=== PATIENT | female | born 1980 | race Caucasian/White ===

== ENCOUNTER 2018-01-25 13:28 | Emergency (ER) | payer MEDICAID, SELFPAY ==
[2018-01-25 13:29] VITALS: BP 124/75; PULSE 81; RESP 16; TEMP 37.1; O2SAT 97; BMI 26.2
--- NOTE | 2018-01-25 14:29 | ED.VISSUMM ---
- ER Visit Summary Date of Service: 01/25/18 Chief Complaint: Headache and bumps on the back of my head History of Present Illness: The patient is a 37 F who complains of a headache. She states it began about 3:00 this morning. It did transiently seemed to improve but then worsened through the next several hours again. Currently she complains of a frontal headache that is aching and rated as an 8 out of 10. She denies any associated symptoms such as fevers nausea vomiting visual changes. No history of fall or injury. She states that she is really not concerned about her migraine and that she would not have come in for that alone. Mainly concerned with the abnormal bumps on the back of her head. She denies any recent illness fevers vomiting diarrhea review of systems negative except as noted above. Physical Examination: Afebrile vitals are normal Moist mucous membranes Patient does have tender left-sided posterior cervical lymphadenopathy I do not appreciate any scalp wounds folliculitis or abscess. Neck is supple with no meningismus Heart regular rate and rhythm Lungs are clear Alert and oriented ?3 with no focal or lateralizing neurological deficits no ataxia normal cerebellar testing Test Results: Not indicated Emergency Department Course and Treatment: Patient is not really concerned for her headache and is not requesting any treatment for that. She is medically healthy and has a normal neurological exam. I do not believe any imaging is necessary at this time. She is mainly concerned with her lymphadenopathy. She has a couple of tender posterior left cervical lymph nodes which are mobile. Patient was advised on supportive care. She was advised to follow-up with her primary care physician. She understands to return for new or worsening symptoms. Treatment Plan: [] Disposition: Discharge Impression: Headache Lymphadenopathy This note was generated with [employer] dictation software. It may contain incorrect words, spelling, and punctuation that were not noted in review of the chart prior to signing ED Disposition - Plan for ED Patient: Chief Complaint: Headache Referrals: Arianna Bacon NP-C [Primary Care Provider] -
--- NOTE | 2018-01-25 14:34 | DCINST.ED_ITS ---
ED Disposition - Plan for ED Patient: Chief Complaint: Headache Instructions: ED Headache Migraine, ED Cervical Adenitis No Abx Tx Referrals: Arianna Bacon, [employer]-C [Primary Care Provider] -
[2018-01-25 14:55] VITALS: BP 106/65; PULSE 64; RESP 17
== END 2018-01-25 14:55 | disposition home or self-care (01) ==
LOC: ED 14:28
PROVIDERS: Emergency Provider Emergency Medicine; Family Provider Nurse Practitioner Family; PCP Nurse Practitioner Family
DX: R51 Headache (principal); R59.0 Localized enlarged lymph nodes; J45.909 Unspecified asthma, uncomplicated; Z79.899 Other long term (current) drug therapy; Z72.0 Tobacco use
CPT/HCPCS: 99282

== ENCOUNTER → 2018-09-29 14:15 | Outpatient (CLI) | payer MEDICAID, SELFPAY ==
--- NOTE | 2018-09-29 14:38 | RAD_ITS ---
STUDY: X-RAY CHEST REASON FOR EXAM: Female, 38 years old. Cough TECHNIQUE: Frontal and lateral views of the chest COMPARISON: 07/21/2017 FINDINGS: The lungs are clear. There are no pleural effusions. There is no pneumothorax. The heart is normal in size. The visualized osseous structures are within normal limits. RAD/Chest PA and Lateral IMPRESSION: Clear lungs. Electronically Signed: Leo Archer, at 22:20 EST Tel , Service support ,
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
== END ==
PROVIDERS: Referring Provider Nurse Practitioner Family; Visit Provider Nurse Practitioner Family
DX: R05 Cough (principal)
CPT/HCPCS: 71046; 87070; 87205

== ENCOUNTER → 2018-11-08 09:20 | Outpatient (CLI) | payer MEDICAID, SELFPAY ==
[2018-11-08 08:34] VITALS: BMI 25.2
[2018-11-08 10:03] LABS: Absolute Lymphocyte Count 2.44 X10^3/ul (0.83-4.51); Absolute Neutrophil Count 4.4 X10^3/uL (2.0-7.7); Basophil# 0.03 X10^3/uL; Basophil% 0.4 % (0-1); Eosinophil# 0.27 X10^3/uL; Eosinophils% 3.6 % (0-5); Hematocrit 41.1 % (37-47); Hemoglobin 13.4 g/dl (12.0-15.0); Lymphocyte # 2.44 X10^3/ul (4.0); Lymphocyte % 32.9 % (19-41); Mean Corp Hgb Conc 32.6 g/gl (32-36); Mean Corpuscular Volume 101.2 fL (81-99); Mean Platelet Vol. 10.9 fl (6.2-12.0); Monocyte# 0.29 X10^3/uL; Monocyte% 3.9 % (0-10); Neutrophil # 4.38 X10^3/uL (2.7-7.7); Neutrophil % 59.1 % (47-70); Platelet Count 235 K/mm3 (150-450); RBC Distribution Width SD 47.8 fl (35.1-43.9); Red Blood Count 4.06 M/mm3 (4.2-5.4); White Blood Count 7.4 K/mm3 (4.4-11.0)
[2018-11-08 10:06] LABS: POSITIVE COUNT NO; POSITIVE DIFFERENTIAL NO; POSITIVE MORPHOLOGY NO
[2018-11-11 09:09] LABS: Ash, White 0.75 kU/L (Class II); Aspergillus fumigatus 4.25 kU/L (Class IV); Bermuda Grass 0.47 kU/L (Class I); Birch 0.26 kU/L (Class 0/I); Black Walnut 0.87 kU/L (Class II); Cat Hair / Dander,Stand 1.03 kU/L (Class II); Cedar, Mountain 0.66 kU/L (Class II); Cladosporium herbarum 1.82 kU/L (Class III); Cockroach, American 0.64 kU/L (Class II); Cottonwood 0.47 kU/L (Class I); D farinae Mite 0.72 kU/L (Class II); D pteronyssinus 1.02 kU/L (Class II); Dog Epithelia 4.18 kU/L (Class IV); Elm, American White 0.92 kU/L (Class II); Immunoglobulin E 2108 IU/mL (0-100); Maple/Box Elder 0.75 kU/L (Class II); Mulberry, White 0.39 kU/L (Class I); Oak, White 0.54 kU/L (Class I); Pecan 0.33 kU/L (Class I); Pigweed, Rough 0.63 kU/L (Class II); Ragweed, Short/Common 0.46 kU/L (Class I); Russian Thistle 0.48 kU/L (Class I); Sycamore, American 0.74 kU/L (Class II); Timothy Grass 0.75 kU/L (Class II)
[2018-11-11 20:06] LABS: Aspirgillus flavus Negative (Neg:<1:1); Aspirgillus fumigatus Negative (Neg:<1:1); Aspirgillus niger Negative (Neg:<1:1)
[2018-11-13 08:53] LABS: Immunoglobulin E 2358 IU/mL (0-100)
[2018-11-13 09:04] LABS: Mouse Urine 0.39 kU/L (Class I)
--- OUTSIDE RECORDS SUMMARY | 2019-01-10 05:54 | XMS RPT_ITS ---
:1980 Author Organization OHIP Care Team Providers Name Role Phone Arianna Pepper Referring Unavailable CLINIC, [facility]URPIN Primary Care Unavailable Arianna Pepper Attending Unavailable Rudy Garcia D.O. Attending Unavailable CLINIC, [facility] Referring Unavailable Arianna Pepper Primary Care Unavailable Horacio Linda Attending Unavailable Rudy Garcia D.O. Attending Unavailable CLINIC, [facility] BOYER FREE Primary Care Unavailable PROBLEMS PROBLEMS DATE TYPE CONDITION / CODE ATTENDING STATUS SOURCE 11/08/2018 Unknown J45.909 - Rudy Garcia, Active [place] Unspecified asthma, D.O. [facility] J45.909(ICD-10) Repository 09/29/2018 Unknown R05 - Cough / Jordi ECHEVARRIA, Active Raymond R05(ICD-10) [facility] Hospital Repository PROCEDURES PROCEDURES No Procedure Records FoundRESULTS RESULTS CBC W/DIFF, AUTOMATED Collected: 11/08/2018 Status: F Source: [place] 9:26 AM [facility] HOSPITAL REPOSITORY TYPE CODE TESTS RESULT OUT [...] Lymph 2.44 Performed By: #### L100.0100 #### [facility] [address] [place], [place], [address] IMMUNOGLOBULIN E Collected: 11/08/2018 Status: F Source: [place] 9:26 AM [facility] REPOSITORY TYPE CODE TESTS RESULT OUT OF REFERENCE UNITS RANGE LAB L3200.1600 0-100 IU/mL High IMMUNO E 2358 Result Comment: Performed at: - [facility] [id number] Appraisal Analyst: Blanquita Negrete MD, Phone: [phone] Performed By: #### L3200.1600, L3500.3600 #### [facility] (refer to report for specific site) refer to report for address and phone number ASPERGILLUS ANTIBODIES Collected: 11/08/2018 Status: F Source: [place] 9:26 AM [facility] REPOSITORY TYPE CODE TESTS RESULT OUT OF RANGE REFERENCE UNITS LAB L3500.3700 Neg:<1:1 Asp. Normal fumigatus Negative LAB L3500.3800 Neg:<1:1 Asp. Normal flavus Negative LAB L3500.3900 Neg:<1:1 Asp. Normal niger Negative Performed By: #### L3200.1600, L3500.3600 #### [facility] (refer to report for specific site) refer to report for address and phone number ALLERGEN RESP. AREA 5 Collected: 11/08/2018 Status: F Source: [place] 9:26 AM [facility] REPOSITORY Order Comment: Reason for Exam: Asthma Reason for exam? Asthma TYPE CODE TESTS RESULT OUT OF RANGE REFERENCE UNITS LAB L5500.8000 0-100 IU/mL High TOTAL igE 2108 LAB L5500.9900 . Normal RAST COMMENT Comment Result Comment: Levels of Specific IgE Class Description of Class ----- < 0.10 0 Negative 0.10 - 0.31 0/I Equivocal/Low 0.32 - 0.55 I Low 0.56 - 1.40 II Moderate 1.41 - 3.90 III High 3.91 - 19.00 IV Very High 19.01 - 100.00 V Very High >100.00 Very High LAB L5510.0040 Class II kU/L CAT HAIR/DANDER High 1.03 LAB L5510.0070 Class IV kU/L DOG EPITHELIA High 4.18 LAB L5520.0020 Class II kU/L D FARINAE MITE High 0.72 LAB L5520.0030 Class II kU/L D PTERONYSSINUS High 1.02 LAB L5540.0020 Class I kU/L BERMUDA GRASS High 0.47 LAB L5540.0190 Class II kU/L GIOVANNY GRASS High 0.75 LAB L5550.0020 Class IV kU/L ALTERNARIA TEN High 14.70 LAB L5550.0040 Class IV kU/L ASPERGILLUS FUM High 4.25 LAB L5550.0140 Class III kU/L CLADOSPOR HERB High 1.82 LAB L5550.0340 Class IV kU/L PEN Notatum High 4.00 LAB L5555.0380 Class II kU/L COCKROACH,AMER High 0.64 LAB L5555.0410 Class I kU/L Mouse Urine High 0.39 Result Comment: Performed at: [facility] [id number] Appraisal Analyst: Blanquita Negrete MD, Phone: [phone] LAB L5560.0050 Class II kU/L OLYA, WHITE High 0.75 LAB L5560.0100 Class 0/I kU/L BIRCH High 0.26 LAB L5560.0110 Class II kU/L CEDAR, High MOUNTAIN 0.66 LAB L5560.0140 Class I kU/L COTTONWOOD High 0.47 LAB L5560.0170 Class II kU/L ELM,AMER High WHITE 0.92 LAB L5560.0310 Class II kU/L MAPLE/BOX High ELDER 0.75 LAB L5560.0371 Class I kU/L MULBERRY, High WHITE 0.39 LAB L5560.0400 Class I kU/L OAK, WHITE High 0.54 LAB L5560.0440 Class I kU/L PECAN High 0.33 LAB L5560.0550 Class II kU/L SYCAMORE, High AMER 0.74 LAB L5560.0570 Class II kU/L BLACK High WALNUT 0.87 LAB L5580.0210 Class II kU/L PIGWEED, High ROUGH 0.63 LAB L5580.0260 Class I kU/L RAGWEED High SH/COM 0.46 LAB L5580.0320 Class I kU/L SHEEP High SORREL 0.40 LAB L5580.0360 Class I kU/L SURINAMESE High THISTLE 0.48 Performed By: #### L5500.0700 #### [facility] (refer to report for specific site) refer to report for address and phone number PULMONARY VISIT REPORT Observed: 11/08/2018 Status: F Source: [place] 9:24 AM [facility] REPOSITORY [facility] [place] [address] [place] [address] OFFICE VISIT Date of Service: 11/08/18 MR#: [id number] Acct: [id number] Name: SEAN BORREGO Rep #: [id number] : 1980 Provider: Rudy Garcia D.O. Age/Sex: 38/F [place] [facility] Status: Signed Assessment AND Plan 1. Asthma [...] patient is currently being followed by the [facility]. 10 pages of outside medical records were [...] denies ever having been evaluated by a flask handler. She does report that when she becomes [...] DO Cosigner Signature: Date (if applicable) CC: [facility] CHEST PA AND LATERAL Observed: 09/29/2018 Status: F Source: [place] 2:38 PM [facility] REPOSITORY [facility] Imaging Services [address] [place] [address] Chest PA and Lateral MR#: [id number] Acct: [id number] Name: SEAN BORREGO Rep #: [id number] : 1980 F 38 From: Leo Archer MD PCP: [facility] Status: REG CLI Study: Chest PA and Lateral Date of Exam: 09/29/18 Exam# [id number] Ordering Dr: Arianna Bacon CHANGE LEAD-C STUDY: X-RAY CHEST REASON FOR EXAM: Female, [...] support , CC: Arianna ECHEVARRIA; ZAIN BOYER [facility] Product/Device Technologist: Signed Observed: 09/29/2018 Status: F Source: [place] CULTURE, SPUTUM 2:31 PM [facility] REPOSITORY Gram Stain Gram Stain 2+ White Blood Cells Rare Gram positive cocci Rare Epithelial cells Rare Yeast Like Organisms Resp. Culture Mixed normal respiratory sandy. No Haemophilus, Streptococcus pneumoniae, beta-hemolytic Streptococcus or Staphylococcus aureus isolated. Performed By: #### M100.0800 #### [facility] [address] [place], [address] DISCHARGE INSTRUCTION Observed: 01/25/2018 Status: F Source: [place] 2:34 PM [facility] REPOSITORY [facility] Medical Records Department [address] [place] [address] Discharge Instruction 01/25/18 1433 MR#: [id number] Acct: [id number] Name: SEAN BORREGO Rep #: [id number] : 1980 37 From: Horacio Linda MD PCP: Arianna Pepper Status: REG ER ED Disposition - Plan for ED Patient: Chief Complaint: Headache Instructions: ED Headache Migraine, ED Cervical Adenitis No Abx Tx Referrals: Arianna Bacon, CHANGE LEAD-C [Primary Care Provider] - What to do if you have Problems For any increased pain, shortness of breath, bleeding, nausea or vomiting, chest pain, or any unexpected problems, contact your Primary Care Provider. Call [facility] ([phone]) or report to the closest Emergency Room. Call 911 if necessary. 01/25/18 1434 <Electronically signed by Horacio Linda MD> Date Horacio Linda MD Cosigner Signature (If Indicated): Date CC: Arianna ECHEVARRIA EMERGENCY DEPARTMENT Observed: 01/25/2018 Status: F Source: [place] SUMMARY 2:33 PM [facility] REPOSITORY [facility] Medical Records Department [address] [place] [address] Emergency Department Summary 01/25/18 1429 MR#: [id number] Acct: [id number] Name: SEAN BORREGO Rep #: [id number] : 1980 37 From: Horacio Linda MD [...] Headache Lymphadenopathy This note was generated with [employer] dictation software. It may contain incorrect words, spelling, and punctuation that were not noted in review of the chart prior to signing ED Disposition - Plan for ED Patient: Chief Complaint: Headache Referrals: Arianna Bacon, CHANGE LEAD-C [Primary Care Provider] - What to do if you have Problems For any increased pain, shortness of breath, bleeding, nausea or vomiting, chest pain, or any unexpected problems, contact your Primary Care Provider. Call [facility] ([phone]) or report to the closest Emergency Room. Call 911 if necessary. 01/25/18 1433 <Electronically signed by Horacio Linda MD> Date Horacio Linda MD Cosigner Signature (If Indicated): Date CC: Arianna ECHEVARRIA ALLERGIES ALLERGIES DATE TYPE / CODE NAME / CODE REACTION SEVERITY SOURCE 11/03/2018 Drug Penicillins Anaphylaxis [facility]160 /[id number] itching Hospital 29825(SNOMED (RXNORM) Repository CT) 01/25/2018 Drug caffeine/F0 Rash Unknown [facility] All[facility]/4160 [id number](RX Hospital 04018(SNOMED NORM) Repository CT) 01/25/2018 Drug aspirin/F00 Rash Unknown [place] [facility] Allergy/4160 [id number]([facility] Hospital 93756(SNOMED ORM) Repository CT) 01/25/2018 Drug acetaminoph Rash Unknown [facility] Allergy/4160 en/[id number] Hospital [facility](SNOMED 05(RXNORM) Repository CT) ENCOUNTERS ENCOUNTERS ADMIT/DISCHARGE ACCOUNT ADMITTING ENCOUNTER LOCATION SOURCE NUMBER CLASS 11/08/2018 [id number] Ambulatory [place] 3 [facility] ing:PAVLAB Repository 11/08/2018/ [id number] Ambulatory BMSBuilding:B [place] 9 8 MS.PMW [facility] Repository 09/29/2018 [id number] Ambulatory [place] G[place] 7 [facility] ing:LAB Repository 01/25/2018/ [id number] Emergency Raymond Raymond 8 7 [facility] ing:ED Repository PAYERS PAYERS ENCOUNTER GUARANTOR PAYER SUBSCRIBER SOURCE 11/08/2018 SEAN Mahan Primary SEAN Beasley [id number] Insurance:CARESOURCEP SUSANAB: [facility] Number: [id number] [id number] Repository [address]Wmp: (815) Date:2018-11-08P O [phone] () [address]ATTN: [place] [address]GH: 11/08/2018 Secondary NOT GIVENUNK Raymond Insurance:SELF PAY [facility] Number: Effective Repository Date:2018-11-08 11/08/2018 SEAN Mahan Primary SEAN Beasley [id number] Insurance:CARESOURCEP INESYKB: [facility] Number: [id number] [place], [place] [id number] Repository [address]Hll: (815) Date:2018-10-23 O [phone] () [address]ATTN: [place] [address]BC: 11/08/2018 Secondary NOT GIVENUNK Raymond Insurance:SELF PAY [facility] Number: Effective Repository Date:2018-11-02 09/29/2018 SEAN Mahan Primary SEAN Beasley [id number] Insurance:CAREURCELMO MEZAB: [facility] Number: [id number] [id number] Repository 520[address]Avd: (115) Date:2018-09-29P O [phone] () [address]ATTN: [place] [address]QR: 09/29/2018 Secondary NOT GIVENUNK Gael Insurance:SELF PAY [facility] Number: Effective Repository Date:2018-09-29 01/25/2018 SEAN Mahan Primary SEAN K Gale [id number] Insurance:[facility] SUSANAB: [facility] Number: [id number] [id number] Repository [address]Hhz: (815) Date:2018-01-25P O [phone] () [address]ATTN: [place] [address]NI: 01/25/2018 Secondary NOT GIVENUNK Gale Insurance:SELF PAY [facility] Number: Effective Repository Date:2018-01-25
== END ==
PROVIDERS: Visit Provider Internal Medicine Critical Care Medicine
DX: J45.909 Unspecified asthma, uncomplicated (principal)
CPT/HCPCS: 36415; 82785; 85025; 86003; 86606

== ENCOUNTER → 2018-11-16 10:29 | Outpatient (CLI) | payer MEDICAID, SELFPAY ==
[2018-11-08 08:34] VITALS: BMI 25.2
--- NOTE | 2018-11-16 13:54 | PFT ---
INTRODUCTION: The patient is a 38-year-old female that presents for pulmonary function testing secondary to a diagnosis of asthma. Respiratory therapy reports good patient effort. Bronchodilators were used during testing. INTERPRETATION: Forced expiration spirometry demonstrates no evidence of a large airways obstructive ventilatory defect. There was no significant response to aerosolized bronchodilators. Spirograms are of good quality and plateau normally. Body plethysmography was performed and reveals a decreased TLC to 5.35 L, 85% of predicted, indicative of a mild restrictive ventilatory defect. The remainder of the lung volumes are symmetrically reduced. Diffusing capacity by single breath CO is within normal limits at 97% of predicted. IMPRESSION: These pulmonary function studies demonstrate the presence of an isolated mild restrictive ventilatory defect. There are no previous pulmonary function studies available for comparison.
== END ==
PROVIDERS: Referring Provider Internal Medicine Critical Care Medicine; Visit Provider Internal Medicine Critical Care Medicine
DX: J45.909 Unspecified asthma, uncomplicated (principal)
CPT/HCPCS: 94060; 94726; 94729

== ENCOUNTER 2019-03-29 20:28 | Emergency (ER) | payer MEDICAID, SELFPAY ==
[2019-02-01 08:13] VITALS: BMI 26.2
[2019-03-29 20:29] VITALS: BP 133/77; PULSE 72; RESP 16; TEMP 36.6; O2SAT 98; BMI 28.5
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
[2019-03-29] MEDS: predniSONE 20 MG Tablet 60 MG PO (21:10)
[2019-03-29] MEDS: Naproxen 500 MG Tablet PO (21:10)
[2019-03-29 21:12] VITALS: BP 133/77; PULSE 17; RESP 16; O2SAT 98
== END 2019-03-29 21:17 | disposition home or self-care (01) ==
LOC: ED 21:12
PROVIDERS: Emergency Provider Emergency Medicine
DX: S39.012A Strain of muscle, fascia and tendon of lower back, initial encounter (principal); M54.41 Lumbago with sciatica, right side; X58.XXXA Exposure to other specified factors, initial encounter; Y93.9 Activity, unspecified; Y92.9 Unspecified place or not applicable; J45.909 Unspecified asthma, uncomplicated; Z87.891 Personal history of nicotine dependence
CPT/HCPCS: 99284

== ENCOUNTER → 2019-05-03 10:33 | Outpatient (CLI) | payer MEDICAID, SELFPAY ==
[2019-05-03 09:50] VITALS: BMI 28.5
[2019-05-03 11:14] LABS: Absolute Lymphocyte Count 2.52 X10^3/uL (0.83-4.51); Absolute Neutrophil Count 3.8 X10^3/uL (2.0-7.7); Basophil# 0.03 X10^3/uL; Basophil% 0.4 % (0-1); Eosinophil# 0.16 X10^3/uL; Eosinophils% 2.3 % (0-5); Hematocrit 43.5 % (37-47); Hemoglobin 14.5 g/dL (12.0-15.0); Lymphocyte # 2.52 X10^3/ul (4.0); Lymphocyte % 36.1 % (19-41); Mean Corp Hgb Conc 33.3 g/dL (32-36); Mean Corpuscular Hgb 33.3 pg (27.0-32.0); Mean Corpuscular Volume 99.8 fL (81-99); Mean Platelet Vol. 10.3 fl (6.2-12.0); Monocyte# 0.41 X10^3/uL; Monocyte% 5.9 % (0-10); NRBC Flagged by Analyzer 0 % (0-5); Neutrophil # 3.84 X10^3/uL (2.7-7.7); Platelet Count 222 K/mm3 (150-450); RBC Distribution Width CV 12.6 % (11.6-14.6); RBC Distribution Width SD 46.6 fl (35.1-43.9); Red Blood Count 4.36 M/mm3 (4.2-5.4)
== END ==
PROVIDERS: Referring Provider Nurse Practitioner Acute Care; Visit Provider Nurse Practitioner Acute Care
DX: J45.909 Unspecified asthma, uncomplicated (principal)
CPT/HCPCS: 36415; 85025

== ENCOUNTER 2019-06-01 07:50 | Emergency (ER) | payer MEDICAID, SELFPAY ==
[2019-05-03 09:50] VITALS: BMI 28.5
[2019-06-01 07:51] VITALS: BP 151/79; PULSE 83; RESP 19; TEMP 37.2; O2SAT 99; BMI 25.8
--- NOTE | 2019-06-01 07:59 | RAD_ITS ---
STUDY: X-RAY - PELVIS REASON FOR EXAM: Female, 38 years old. Right-sided pain following a fall. TECHNIQUE: One view of the pelvis was obtained. COMPARISON: None. FINDINGS: There is a non-specific bowel gas pattern. Normal visualized soft tissue structures. Normal bilateral iliac wings, sacroiliac joints and visualized sacrum. Normal visualized bilateral superior and inferior pubic rami. Normal pubic symphysis. Normal ischial tuberosities. Normal visualized right femoral head. Normal right acetabulum. Normal right hip joint. Normal visualized left femoral head. Normal left acetabulum. Normal left hip joint. RAD/Pelvis 1 or 2 Views IMPRESSION: Normal x-ray examination of the pelvis. Electronically Signed: Riki Lawson, at 8:37 EDT , Service support ,
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
[2019-06-01] MEDS: Ketorolac 15 MG/ML Vial IV (08:09)
[2019-06-01 08:44] VITALS: RESP 18
== END 2019-06-01 08:45 | disposition home or self-care (01) ==
PROVIDERS: Emergency Provider Emergency Medicine
DX: S30.0XXA Contusion of lower back and pelvis, initial encounter (principal); W01.0XXA Fall on same level from slipping, tripping and stumbling without subsequent striking against object, initial encounter; Y93.9 Activity, unspecified; Y92.9 Unspecified place or not applicable; Y99.0 Civilian activity done for income or pay; J45.909 Unspecified asthma, uncomplicated; Z87.891 Personal history of nicotine dependence; Z79.899 Other long term (current) drug therapy
CPT/HCPCS: 72170; 96374; 99283; A4216

== ENCOUNTER → 2019-06-05 12:36 | Outpatient (CLI) | payer MEDICAID, SELFPAY ==
[2019-06-01 07:51] VITALS: BMI 25.8
[2019-06-05 12:54] VITALS: BP 124/60; PULSE 70; RESP 16; TEMP 36.6; O2SAT 98; BMI 26.5
[2019-06-05] MEDS: Benralizumab 30 MG/ML Syringe SQ (13:23)
--- NOTE | 2019-06-05 15:37 | NURSING ---
monitored patient for 90 minutes after injection. Tolerated well. BP 111/57. pulse 61. c/o of nausea but didnt eat all day except a fruit pie. Gave patient apple juice and snack..Feels better.
== END ==
PROVIDERS: Referring Provider Nurse Practitioner Acute Care; Visit Provider Nurse Practitioner Acute Care
DX: J45.50 Severe persistent asthma, uncomplicated (principal)
CPT/HCPCS: 96372; J0517

== ENCOUNTER → 2019-07-03 11:29 | Outpatient (CLI) | payer MEDICAID, SELFPAY ==
[2019-06-05 12:54] VITALS: BMI 26.5
[2019-07-03 11:41] VITALS: BP 125/70; PULSE 72; RESP 16; TEMP 36.8; O2SAT 98; BMI 25.8
[2019-07-03] MEDS: Benralizumab 30 MG/ML Syringe SQ (11:55)
== END ==
PROVIDERS: Referring Provider Nurse Practitioner Acute Care; Visit Provider Nurse Practitioner Acute Care
DX: J45.50 Severe persistent asthma, uncomplicated (principal)
CPT/HCPCS: 96372; J0517

== ENCOUNTER → 2019-07-30 11:55 | Outpatient (CLI) | payer MEDICAID, SELFPAY ==
[2019-07-03 11:41] VITALS: BMI 25.8
[2019-07-30 12:23] VITALS: BP 125/72; PULSE 71; RESP 16; TEMP 36.4; O2SAT 100
[2019-07-30] MEDS: Benralizumab 30 MG/ML Syringe SQ (12:36)
== END ==
PROVIDERS: Referring Provider Nurse Practitioner Acute Care; Visit Provider Nurse Practitioner Acute Care
DX: J45.50 Severe persistent asthma, uncomplicated (principal)
CPT/HCPCS: 96372; J0517

== ENCOUNTER → 2019-09-28 08:54 | Outpatient (CLI) | payer MEDICAID, SELFPAY ==
[2019-07-03 11:41] VITALS: BMI 25.8
[2019-08-02 07:10] VITALS: BMI 28.1
[2019-09-28 09:00] VITALS: BP 130/70; PULSE 78; RESP 18; TEMP 36.3; O2SAT 98
[2019-09-28] MEDS: Benralizumab 30 MG/ML Syringe SQ (09:02)
[2019-09-28 09:35] VITALS: BP 116/66; PULSE 90; RESP 18; TEMP 36.3; O2SAT 99
== END ==
PROVIDERS: Referring Provider Nurse Practitioner Acute Care; Visit Provider Nurse Practitioner Acute Care
DX: J45.50 Severe persistent asthma, uncomplicated (principal)
CPT/HCPCS: 96372; J0517

== ENCOUNTER → 2019-11-23 08:37 | Outpatient (CLI) | payer MEDICAID, SELFPAY ==
[2019-08-02 07:10] VITALS: BMI 28.1
[2019-10-25 07:41] VITALS: BMI 28.1
[2019-11-23 08:48] VITALS: BP 127/73; PULSE 79; RESP 16; TEMP 36.6; O2SAT 99; BMI 28.5
[2019-11-23] MEDS: Benralizumab 30 MG/ML Syringe SQ (08:53)
== END ==
PROVIDERS: Referring Provider Nurse Practitioner Acute Care; Visit Provider Nurse Practitioner Acute Care
DX: J45.50 Severe persistent asthma, uncomplicated (principal)
CPT/HCPCS: 96372; J0517

== ENCOUNTER → 2020-01-31 07:46 | Outpatient (CLI) | payer MEDICAID, SELFPAY ==
[2020-01-29 07:16] VITALS: BMI 28.5
[2020-01-31 07:58] VITALS: BP 106/61; PULSE 82; RESP 16; TEMP 36.4; O2SAT 100; BMI 28.5
[2020-01-31] MEDS: Benralizumab 30 MG/ML Syringe SQ (08:21)
== END ==
PROVIDERS: Referring Provider Nurse Practitioner Acute Care; Visit Provider Nurse Practitioner Acute Care
DX: J45.50 Severe persistent asthma, uncomplicated (principal)
CPT/HCPCS: 96372; J0517

== ENCOUNTER → 2020-03-27 07:35 | Outpatient (CLI) | payer MEDICAID, SELFPAY ==
[2020-01-29 07:16] VITALS: BMI 28.5
[2020-01-31 07:58] VITALS: BMI 28.5
[2020-03-27 07:49] VITALS: BP 117/60; PULSE 79; RESP 16; TEMP 37; O2SAT 98; BMI 25.7
[2020-03-27] MEDS: Benralizumab 30 MG/ML Syringe SQ (07:54)
[2020-03-27 08:22] VITALS: BP 111/61; PULSE 74; RESP 16; TEMP 36.9; O2SAT 99
== END ==
PROVIDERS: Referring Provider Nurse Practitioner Acute Care; Visit Provider Nurse Practitioner Acute Care
DX: J45.50 Severe persistent asthma, uncomplicated (principal)
CPT/HCPCS: 96372; J0517

== ENCOUNTER → 2020-04-30 14:27 | Outpatient (CLI) | payer MEDICAID, SELFPAY ==
[2020-04-09 09:19] VITALS: BMI 25.8
--- NOTE | 2020-04-30 14:31 | VDLE_ITS ---
Reason For Study: Pain in calves RIGHT LEFT GSV is normal. GSV is normal. CFV is compressible, spontaneous, phasic, CFV is compressible, spontaneous, phasic, competent and demonstrates normal competent, and demonstrates normal augmentation. augmentation. FV is compressible, spontaneous, phasic, FV is compressible, spontaneous, phasic, competent and demonstrates normal competent and demonstrates normal augmentation. augmentation. POP V is compressible, spontaneous, phasic, POP V is compressible, spontaneous, phasic, competent and demonstrates normal competent and demonstrates normal augmentation. augmentation. T/P Trunk is compressible. T/P Trunk is compressible. PTV is compressible. PTV is compressible. RT PerV is compressible. LT PerV is compressible. Procedure Nonvasculairzed structure noted in the Exam performed in department. popliteal fossa measuring approximently 1.58 A preliminary report was called and/or faxed x 3.99 x 5.43 cm. to Jordi. Interpretation Summary Deep veins of the lower extremities are bilaterally patent and compressible segmentally. There is no evidence of deep vein thrombosis on either side. Valvular competence appears intact within the proximal deep venous systems bilaterally. The great saphenous veins appear bilaterally patent and compressible segmentally. A non-vascular, hypoechoic structure is noted in the left popliteal space, measuring 1.58 cm x 3.99 cm x 5.43 cm. This may represent a popliteal cyst. Clinical correlation is advised. Ordering Physician: Arianna Bacon Referring Physician: Anu Gupta [facility] Performed By: Ruth Godoy RVT and Student
== END ==
PROVIDERS: Referring Provider Nurse Practitioner Family; Visit Provider Nurse Practitioner Family
DX: J45.50 Severe persistent asthma, uncomplicated (principal); M79.661 Pain in right lower leg; M79.662 Pain in left lower leg
CPT/HCPCS: 93970

== ENCOUNTER → 2020-05-09 08:10 | Outpatient (CLI) | payer MEDICAID, SELFPAY ==
[2020-05-09 08:06] VITALS: BMI 25.8
--- NOTE | 2020-05-09 08:11 | RAD_ITS ---
STUDY: X-RAY - LEFT KNEE REASON FOR EXAM: Female, 39 years old. CHRONIC PAIN, NO KNOWN INJURY, WORSE RECENTLY TECHNIQUE: Five view(s) of the knee. COMPARISON: None. FINDINGS: Normal visualized distal femur. Normal visualized proximal tibia and fibula. Normal proximal tibiofibular articulation. Normal medial femorotibial compartment. Normal lateral femorotibial compartment. Normal patellofemoral articulation. The soft tissue structures are unremarkable. RAD/Knee 4 or More Views IMPRESSION: Normal x-ray examination of the knee. Electronically Signed: Refugio Collado MD at 9:58 EDT , Service support ,
--- NOTE | 2020-05-09 08:11 | RAD_ITS ---
STUDY: X-RAY - RIGHT KNEE REASON FOR EXAM: Female, 39 years old. CHRONIC PAIN, NO KNOWN INJURY, WORSE RECENTLY TECHNIQUE: 4 view(s) of the knee. COMPARISON: None. FINDINGS: Normal visualized distal femur. Normal visualized proximal tibia and fibula. Normal proximal tibiofibular articulation. Normal medial femorotibial compartment. Normal lateral femorotibial compartment. Normal patellofemoral articulation. The soft tissue structures are unremarkable. RAD/Knee 4 or More Views IMPRESSION: Normal x-ray examination of the knee. Electronically Signed: Refugio Collado MD at 9:58 EDT , Service support ,
--- NOTE | 2020-05-09 08:11 | RAD_ITS ---
STUDY: X-RAY - LUMBAR SPINE REASON FOR EXAM: Female, 39 years old. CHRONIC PAIN, NO KNOWN INJURY, WORSE RECENTLY TECHNIQUE: 4 view(s) of the lumbar spine were obtained. COMPARISON: None FINDINGS: Normal lumbar lordosis. There is no substantial scoliosis. There is a normal alignment of the vertebrae. Normal vertebral bodies and endplates. Normal disc space heights, except for narrowing at L5/S1. There is no demonstrated fracture. The soft tissue structures are unremarkable. RAD/L/S Spine Min 4 Views IMPRESSION: Degenerative changes at L5/S1 with sclerotic endplate changes, spur formation and vacuum disc phenomenon. Electronically Signed: Refugio Collado MD at 9:59 EDT , Service support ,
== END ==
PROVIDERS: Referring Provider Orthopaedic Surgery; Visit Provider Orthopaedic Surgery
DX: M79.604 Pain in right leg (principal); M79.605 Pain in left leg; M25.561 Pain in right knee; M25.562 Pain in left knee; J45.50 Severe persistent asthma, uncomplicated
CPT/HCPCS: 72110; 73564

== ENCOUNTER → 2020-05-22 07:46 | Outpatient (CLI) | payer MEDICAID, SELFPAY ==
[2020-01-31 07:58] VITALS: BMI 28.5
[2020-05-09 08:06] VITALS: BMI 25.8
[2020-05-22] MEDS: Benralizumab 30 MG/ML Syringe SQ (07:59)
[2020-05-22 08:00] VITALS: BP 113/59; PULSE 72; RESP 16; TEMP 36.1; O2SAT 100; BMI 24.9
[2020-05-22 08:31] VITALS: BP 117/64; PULSE 70; RESP 16; TEMP 36.1; O2SAT 100
== END ==
PROVIDERS: Referring Provider Nurse Practitioner Acute Care; Visit Provider Nurse Practitioner Acute Care
DX: J45.50 Severe persistent asthma, uncomplicated (principal)
CPT/HCPCS: 96372; J0517

== ENCOUNTER 2020-06-12 09:00 | Outpatient (RCR) | payer MEDICAID, SELFPAY ==
[2020-05-09 08:06] VITALS: BMI 25.8
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
--- NOTE | 2020-06-12 09:47 | HP.PTDCSUM ---
It has been my pleasure to treat SEAN BORREGO referred by Dr. Seth Cullen DO, with the diagnosis of LUMBAR RADICULOPATHY DDD, L5-S1 for a total of 8 visit(s). Discharge Date: 06/12/20 Please see the following information for a summary of their discharge status. Subjective: Plan t return to DR Cerrato Standing worse better with moving . Bilateral Back Pain Intensity (Out of 10): 8 Left Lower Extremity Pain Intensity (Out of 10): 0 Right Lower Extremity Pain Intensity (Out of 10): 0 % Improvement: 80 Objective/Function: POSTURE: mild foward posture. GAIT: reciprocal pattern. MMT:4/5. LUMBAR ROM: flexion min loss ,extension min loss. -slr Goal 1:: Independant with HEP Goal Progress: Goal Met Goal 2:: Improve posture for ADL'S Goal Progress: Goal Met Goal 3:: Patient to decrease lumbar pain and radicular symptoms by 40% or > to improve function. Goal Progress: Goal Met Goal 4:: Patient improve lumbar ROM for function of recovery . Goal Progress: Goal Met Goal 5:: Patient be d/c to prophalaxis Goal Progress: Goal Met Goal 6:: Patient improve back owestry score by 5 points or >to improve QOL. Plan: D/C -RTD Discharge Comments: rtd and HEP If there are questions or concerns regarding this patient's physical therapy, please feel free to call me at [phone]. Thank you for the referral of this patient. Sincerely, Jeferson Dunn, PT, Cert MDT, OCS
== END 2020-06-12 19:00 | disposition home or self-care (01) ==
LOC: PT 09:00
PROVIDERS: Referring Provider Orthopaedic Surgery; Visit Provider Orthopaedic Surgery
DX: M54.16 Radiculopathy, lumbar region (principal)
CPT/HCPCS: 97014; 97110; 97162; G0283

== ENCOUNTER → 2020-07-17 | Outpatient (CLI) | payer MEDICAID, SELFPAY ==
[2020-05-09 08:06] VITALS: BMI 25.8
[2020-07-08 07:52] VITALS: BMI 24.3
[2020-07-17 07:57] VITALS: BP 121/68; PULSE 82; RESP 16; TEMP 36.4; O2SAT 98; BMI 24.3
[2020-07-17] MEDS: Benralizumab 30 MG/ML Syringe SQ (07:59)
== END | disposition home or self-care (01) ==
LOC: MEDOUTP 07:42
PROVIDERS: Referring Provider Nurse Practitioner Acute Care; Visit Provider Nurse Practitioner Acute Care
DX: J45.50 Severe persistent asthma, uncomplicated (principal)
CPT/HCPCS: 96372; J0517

== ENCOUNTER → 2020-09-12 07:53 | Outpatient (CLI) | payer MEDICAID, SELFPAY ==
[2020-07-08 07:52] VITALS: BMI 24.3
[2020-07-17 07:57] VITALS: BMI 24.3
[2020-09-12 07:55] VITALS: BP 118/61; PULSE 75; RESP 16; TEMP 36.2; O2SAT 98; BMI 24.3
[2020-09-12] MEDS: Benralizumab 30 MG/ML Syringe SQ (07:59)
[2020-09-12 08:32] VITALS: BP 122/64; PULSE 72
== END ==
PROVIDERS: Referring Provider Nurse Practitioner Acute Care; Visit Provider Nurse Practitioner Acute Care
DX: J45.50 Severe persistent asthma, uncomplicated (principal)
CPT/HCPCS: 96372; J0517

== ENCOUNTER → 2020-11-07 07:25 | Outpatient (CLI) | payer MEDICAID, SELFPAY ==
[2020-07-17 07:57] VITALS: BMI 24.3
[2020-09-12 07:55] VITALS: BMI 24.3
[2020-11-07] MEDS: Benralizumab 30 MG/ML Syringe SQ (07:32)
[2020-11-07 07:40] VITALS: BP 103/58; PULSE 67; RESP 16; TEMP 36.1; O2SAT 99; BMI 24.3
[2020-11-07 08:00] VITALS: BP 104/58; PULSE 71; RESP 16; TEMP 36.1; O2SAT 99
== END ==
PROVIDERS: Referring Provider Nurse Practitioner Acute Care; Visit Provider Nurse Practitioner Acute Care
DX: J45.50 Severe persistent asthma, uncomplicated (principal)
CPT/HCPCS: 96372; J0517

== ENCOUNTER 2020-11-21 09:15 | Emergency (ER) | payer MEDICAID, SELFPAY ==
[2020-11-21 08:46] VITALS: BMI 24.2
[2020-11-21 09:15] VITALS: BP 134/45; PULSE 80; RESP 16; TEMP 36.6; O2SAT 97; BMI 24.8
--- NOTE | 2020-11-21 09:20 | RAD_ITS ---
STUDY: X-RAY - RIGHT WRIST REASON FOR EXAM: Female, 40 years old. pt states slipped on ice and fell onto right hand and wrist, pain in right hand, pain in right distal forearm TECHNIQUE: Frontal, lateral, and oblique view(s) of the wrist were obtained. COMPARISON: None. FINDINGS: Normal visualized distal radius and ulna. Normal radiocarpal articulation. Normal distal radioulnar articulation. Normal carpal bones. Normal carpal articulations. Normal carpometacarpal articulation of the thumb. Normal second through fifth carpometacarpal articulations. Normal visualized metacarpal bones. The soft tissue structures are unremarkable. There is no demonstrated acute fracture. RAD/Wrist min 3 Views IMPRESSION: Normal x-ray examination of the wrist. Electronically Signed: Fabián Burnham MD at 10:24 EST , Service support ,
--- NOTE | 2020-11-21 09:20 | RAD_ITS ---
STUDY: X-RAY - RIGHT HAND REASON FOR EXAM: Female, 40 years old. pt states slipped on ice and fell onto right hand and wrist, pain in right hand, pain in right distal forearm TECHNIQUE: Frontal, lateral, and oblique view(s) of the hand. COMPARISON: None. FINDINGS: Normal radiocarpal articulation. Normal distal radioulnar joint. Normal visualized carpal bones. Normal carpal articulations Normal carpometacarpal articulation of the thumb. Normal second through fifth carpometacarpal joints. Normal metacarpi. Normal metacarpophalangeal joint of the thumb. Normal interphalangeal joint of the thumb. Normal proximal and distal phalanges of the thumb. Normal metacarpophalangeal joints of the second through fifth fingers. Normal proximal and distal interphalangeal joints of the second through fifth fingers. Normal phalanges of the second through fifth fingers. The soft tissue structures are unremarkable. There is no acute fracture. RAD/Hand Min 3 Views IMPRESSION: Normal x-ray examination of the hand. Electronically Signed: Fabián Burnham MD at 10:25 EST , Service support ,
--- NOTE | 2020-11-21 09:40 | ED.VIS.UPPEX ---
History of Present Illness Chief Complaint: Upper Extremity Injury Informant: Patient Occurred: Today - NICOLLE Mechanism/Context: Fall Context: Sudden Onset Timing: Continuous Quality of Pain: Aching Location: Right wrist. Patient points to dorsal aspect of carpus. Current Severity: Severe Maximum Severity: Severe Worsened by: Movement Relieved by: Remaining still Associated Symptoms: Loss of Funtion - Very painful to move. Negative for: Parasthesia, Weakness Narrative: Obxzh-[id number] female accidentally slipped on ice today and fell backwards, catching herself on outstretched right hand injuring her wrist. Denies any other injuries. Having significant pain in the dorsal aspect of the carpus, radiating up the middle of the dorsal forearm to about the junction of the middle and distal thirds. - Past Medical History (1) Asthma Status: Chronic Past Medical History - Allergies and Home Meds Allergies/Adverse Reactions: Allergies Penicillins [PCN] Allergy (Severe, Verified 11/21/20 09:17) Anaphylaxis & itching acetaminophen [From Excedrin Migraine] Adverse Reaction (Verified 11/21/20 09:17) Rash aspirin [From Excedrin Migraine] Adverse Reaction (Verified 11/21/20 09:17) Rash caffeine [From Excedrin Migraine] Adverse Reaction (Verified 11/21/20 09:17) Rash [facility] - Surgical History: noncontributory Smoking Status: Former smoker Review of Systems General: Denies: Chills, Fever, Sweats Musculoskeletal: Reports: Extremity Pain. Denies: Neck pain, Back pain, Swelling Skin: Denies: Rash, Wounds Neurological: Denies: Headache, Weakness, Numbness Physical Exam Vital Signs/Narrative: Vital Signs Temp Pulse Resp BP Pulse Ox 11/21/20 09:15 97.8 F 80 16 134/45 H 97 General: Well nourished, Well developed, - - NAD Head: Normocephalic, Atraumatic ENT: No Trauma, Moist Mucous Membranes Neck: Nontender, Full ROM Extremeties: No deformities, very limited range of motion of the right wrist and also fingers due to pain in the wrist but other joints are good. Severely tender throughout the dorsum of the carpus. Mildly tender at the distal radius, nontender at the ulna. No digit tenderness. No snuffbox tenderness and no pain with axial loading of the thumb. Skin: Normal color, No rash, No Trauma Neurological: Alert, Oriented x3, Cranial nerves II-XII grossly intact, Normal Strength, Normal Sensation, Normal Gait Psychological: Normal affect, Normal Mood Diagnostic/Tx/Re-eval Impressions Hand X-Ray 11/21/20 09:20 IMPRESSION: Normal x-ray examination of the hand. Electronically Signed: Fabián Burnham MD at 10:25 EST , Service support , Wrist X-Ray 11/21/20 09:20 IMPRESSION: Normal x-ray examination of the wrist. Electronically Signed: Fabián Burnham MD at 10:24 EST , Service support , 11/21/20 09:20 Hand Min 3 Views [RAD] Stat Wrist min 3 Views [RAD] Stat - Medical Decision Making Patient was given some analgesics, x-rays of the hand and wrist were obtained in order to obtain a better view of the base of the metacarpals and the carpus, given the location of her pain. They are negative. I discussed with Dr. Burnham who read the x-rays, as I thought on the AP there could be a small abnormal area near the base of the second metacarpal. He thinks this is probably a overlap of normal bones, and I agree that I do not see it on any other view. On reexamination of patient, she is more point tender and having a focal area of mild swelling at the center of the dorsal distal carpus, this is in that area. I think she will be adequately immobilized with a Velcro wrist splint, I am going to have her follow-up with orthopedics. She is comfortable without overall plan. ED Disposition - Plan for ED Patient: Disposition: Home or Assisted Living Diagnosis: Right wrist injury Instructions: ED Possible Wrist Fracture Referrals: Geoffrey Patricia MD [STAFF PHYSICIAN] - 1 Week if not improving
[2020-11-21] MEDS: Naproxen 250 MG Tablet 500 MG PO (09:45)
[2020-11-21] MEDS: traMADol 50 MG Tablet PO (09:45)
== END 2020-11-21 10:56 | disposition home or self-care (01) ==
PROVIDERS: Emergency Provider Emergency Medicine
DX: S69.91XA Unspecified injury of right wrist, hand and finger(s), initial encounter (principal); J45.909 Unspecified asthma, uncomplicated; Z87.891 Personal history of nicotine dependence; W00.0XXA Fall on same level due to ice and snow, initial encounter
CPT/HCPCS: 73110; 73130; 99284

== ENCOUNTER → 2020-12-04 10:56 | Outpatient (CLI) | payer MEDICAID, SELFPAY ==
[2020-11-21 09:15] VITALS: BMI 24.8
[2020-12-04 11:30] LABS: Absolute Lymphocyte Count 2.53 X10^3/uL (0.83-4.51); Absolute Neutrophil Count 4.7 X10^3/uL (2.0-7.7); Basophil# 0.01 X10^3/uL; Basophil% 0.1 % (0-1); Hematocrit 41.8 % (37-47); Hemoglobin 13.8 g/dL (12.0-15.0); Lymphocyte # 2.53 X10^3/ul (4.0); Lymphocyte % 32.8 % (19-41); Mean Corpuscular Hgb 32.8 pg (27.0-32.0); Mean Corpuscular Volume 99.3 fL (81-99); Mean Platelet Vol. 10.5 fl (6.2-12.0); Monocyte# 0.43 X10^3/uL; Monocyte% 5.6 % (0-10); NRBC Flagged by Analyzer 0 % (0-5); Neutrophil # 4.72 X10^3/uL (2.7-7.7); Neutrophil % 61.2 % (47-70); Platelet Count 224 K/mm3 (150-450); RBC Distribution Width CV 13.4 % (11.6-14.6); RBC Distribution Width SD 49.1 fl (35.1-43.9); Red Blood Count 4.21 M/mm3 (4.2-5.4); White Blood Count 7.7 K/mm3 (4.4-11.0)
[2020-12-04 12:16] LABS: ALB/GLOB Ratio 0.9 RATIO (0.9-2.4); AST(SGOT) 14 U/L (15-37); Alanine Aminotransfer ALT/SGPT 19 U/L (13-56); Albumin, Serum 3.5 g/dL (3.2-5.0); Alkaline Phosphatase 80 U/L (45-117); Anion Gap 4 (5-15); BUN 20 mg/dL (7-18); BUN/Creat Ratio 25.3 RATIO (10-20); Calcium,Total 8.8 mg/dL (8.5-10.1); Chloride 107 mmol/L (98-107); Creatinine, Serum 0.79 mg/dL (0.55-1.02); EST Glomerular Filtration Rate 85 mL/min (>60); Est Glom Filt Rate - Afr Amer 103 mL/min (>60); Globulin 3.7 g/dL (2.2-4.2); Glucose 94 mg/dL (74-106); Potassium 3.9 mmol/L (3.5-5.1); Protein, Total 7.2 g/dL (6.4-8.2); Sodium Level 139 mmol/L (136-145); Thyroid Stim Hormone (TSH) 0.86 uIU/mL (0.358-3.74)
== END ==
DX: L65.9 Nonscarring hair loss, unspecified (principal); J45.50 Severe persistent asthma, uncomplicated
CPT/HCPCS: 36415; 80053; 84443; 85025

== ENCOUNTER → 2021-01-01 09:11 | Outpatient (CLI) | payer MEDICAID, SELFPAY ==
[2021-01-01 09:53] LABS: Erythrocyte Sedimentation Rate 2 mm/hr (0-30)
[2021-01-01 11:44] LABS: CRP 7.24 mg/L (0.0-3.0); Ferritin 302 ng/mL (8-252); Follicle Stimulating Hormone 2.8 mIU/mL; Iron 163 ug/dL (50-170); Iron Binding Capacity,Total 444 ug/dL (250-450); Luteinizing Hormone 1.7 mIU/mL; Prolactin 10.2 ng/mL; T4 Free Direct 1.02 ng/dL (0.76-1.46)
[2021-01-02 12:57] LABS: ANTINUCLEAR ANTIBODIES DIRECT Negative (Negative)
[2021-01-09 20:07] LABS: DHEA Sulfate 69.8 ug/dL (57.3-279.2); Testosterone, % Free 1.22 % (0.50-2.80); Testosterone, Free 0.17 ng/dL (0.10-0.85); Testosterone, Total 14 ng/dL (8-48)
[2021-01-09 20:37] LABS: Androstenedione 77 ng/dL (41-262); Thyroid Peroxidase AB < 9 IU/mL (0-34)
== END ==
DX: L65.9 Nonscarring hair loss, unspecified (principal); J45.50 Severe persistent asthma, uncomplicated
CPT/HCPCS: 36415; 82157; 82627; 82728; 83001; 83002; 83540; 83550; 84146; 84402; 84403; 84439; 85652; 86038; 86140; 86376; 82626

== ENCOUNTER → 2021-01-02 07:57 | Outpatient (CLI) | payer MEDICAID, SELFPAY ==
[2020-09-12 07:55] VITALS: BMI 24.3
[2021-01-02 08:00] VITALS: BP 126/61; PULSE 77; RESP 16; TEMP 36.1; O2SAT 100; BMI 24.8
[2021-01-02] MEDS: Benralizumab 30 MG/ML Syringe SC (08:11)
== END ==
PROVIDERS: Referring Provider Nurse Practitioner Acute Care; Visit Provider Nurse Practitioner Acute Care
DX: J45.50 Severe persistent asthma, uncomplicated (principal)
CPT/HCPCS: 96372; J0517

== ENCOUNTER → 2021-02-26 08:45 | Outpatient (CLI) | payer MEDICAID, SELFPAY ==
[2021-01-02 08:00] VITALS: BMI 24.8
[2021-02-26 08:56] VITALS: BP 116/70; PULSE 70; RESP 16; TEMP 36.2; O2SAT 99
[2021-02-26] MEDS: Benralizumab 30 MG/ML Syringe SC (09:00)
== END ==
PROVIDERS: Referring Provider Nurse Practitioner Acute Care; Visit Provider Nurse Practitioner Acute Care
DX: J45.50 Severe persistent asthma, uncomplicated (principal)
CPT/HCPCS: 96372; J0517

== ENCOUNTER → 2021-04-22 07:33 | Outpatient (CLI) | payer MEDICAID, SELFPAY ==
[2021-01-02 08:00] VITALS: BMI 24.8
[2021-04-22 07:48] VITALS: BP 119/69; PULSE 73; RESP 16; TEMP 36.2; O2SAT 99; BMI 25.7
[2021-04-22] MEDS: Benralizumab 30 MG/ML Syringe SC (08:30)
== END ==
PROVIDERS: Referring Provider Nurse Practitioner Acute Care; Visit Provider Nurse Practitioner Acute Care
DX: J45.50 Severe persistent asthma, uncomplicated (principal)
CPT/HCPCS: 96372; J0517

== ENCOUNTER 2021-05-20 14:45 | Emergency (ER) | payer MEDICAID, SELFPAY ==
[2021-04-22 07:48] VITALS: BMI 25.7
[2021-05-20 14:45] VITALS: BP 114/84; PULSE 72; RESP 16; TEMP 37.1; O2SAT 97; BMI 25.7
[2021-05-20 16:04] LABS: Bacteria 0 SEEN /hpf (None Seen); Mucous, Urine 0 SEEN /hpf (<or=2+); Red Blood Cells-Urine 0 SEEN /hpf (0-5); Squamous Epithelial Cells - UA 0 SEEN /hpf (5-10); White Blood Cells 0 SEEN /hpf (0-5)
[2021-05-20 16:11] LABS: Color, Urine Yellow (Yellow); Glucose, Dipstick Normal (Normal); Ketone-Dipstick Negative (Negative); Leukocyte Esterase-Dipstick Negative /ul (Negative); Nitrite-Dipstick Negative (Negative); Occult Blood-Urine Negative /ul (Negative); Protein-Dipstick Negative (Negative); Urine Bilirubin Dipstick Negative (Negative); Urine Clarity Clear (Clear); Urine Urobilinogen Normal (Normal); Urine pH 6.5 (5.0 - 8.0)
[2021-05-20 16:20] LABS: Internal QC Validated? YES +Cl - CLEAR BKGD; Pregnancy, Urine Negative Negative
--- NOTE | 2021-05-20 16:28 | CT_ITS ---
HISTORY: RLQ pain EXAMINATION: CT Abdomen And Pelvis W/ Contrast Injection TECHNIQUE: Helically acquired images were obtained of the abdomen and pelvis following oral and IV contrast. A radiation dose optimization technique was used for this scan. IV Contrast dosage and agent: 100mL Isovue-300 Oral contrast: Yes. COMPARISON: None FINDINGS: LOWER CHEST: Lung bases are clear. No cardiomegaly or pericardial effusion. LIVER: Homogeneous. No focal mass. GALLBLADDER AND BILIARY TREE: No calcified gallstones. No gallbladder distension or wall edema. No intra- or extrahepatic biliary ductal dilation. PANCREAS: No focal cystic or solid mass. SPLEEN: Normal size without focal cystic or solid mass. ADRENAL GLANDS: No nodules. KIDNEYS AND URETERS: Normal renal size and position. No hydronephrosis. PERITONEUM: No ascites or free air. BOWEL: Normal appendix. No stomach or bowel distension. Increased colonic fecal burden. No focal inflammatory bowel wall changes. LYMPH NODES: No enlarged mesenteric or retroperitoneal lymph nodes. VESSELS: Aorta is non-dilated. URINARY BLADDER: Unremarkable. REPRODUCTIVE ORGANS: No pelvic masses. ABDOMINAL WALL: No discrete abdominal or pelvic wall hernia. BONES: No acute or aggressive abnormality. CT/Abdomen/Pelvis WITH Contrast IMPRESSION: No acute findings in the abdomen or pelvis. Colonic fecal burden suggest clinical constipation. Individualized dose optimization techniques were used for this CT. at 1913 Reported and signed by: Rico Angeles MD Electronically Signed: Rico Angeles MD at 19:12 EDT Tel , Service support ,
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
[2021-05-20] MEDS: Ondansetron 4 MG/2 ML Vial IV (16:51)
[2021-05-20 17:20] LABS: Absolute Neutrophil Count 4.7 X10^3/uL (2.0-7.7); Basophil# 0.02 X10^3/uL; Basophil% 0.2 % (0-1); Hemoglobin 13.5 g/dL (12.0-15.0); Lymphocyte % 37.5 % (19-41); Mean Corp Hgb Conc 32.1 g/dL (32-36); Mean Corpuscular Hgb 32.3 pg (27.0-32.0); Mean Corpuscular Volume 100.5 fL (81-99); Mean Platelet Vol. 11.3 fl (6.2-12.0); Monocyte# 0.61 X10^3/uL; Monocyte% 7.1 % (0-10); NRBC Flagged by Analyzer 0 % (0-5); Neutrophil # 4.69 X10^3/uL (2.7-7.7); Platelet Count 238 K/mm3 (150-450); RBC Distribution Width CV 13.6 % (11.6-14.6); RBC Distribution Width SD 50.4 fl (35.1-43.9); Red Blood Count 4.18 M/mm3 (4.2-5.4); White Blood Count 8.5 K/mm3 (4.4-11.0)
[2021-05-20 17:34] LABS: ALB/GLOB Ratio 1.1 RATIO (0.9-2.4); AST(SGOT) 13 U/L (15-37); Alanine Aminotransfer ALT/SGPT 25 U/L (13-56); Albumin, Serum 3.7 g/dL (3.2-5.0); Alkaline Phosphatase 74 U/L (45-117); Anion Gap 4 (5-15); BUN 14 mg/dL (7-18); BUN/Creat Ratio 18.3 RATIO (10-20); Calcium,Total 9.2 mg/dL (8.5-10.1); Chloride 108 mmol/L (98-107); Creatinine, Serum 0.76 mg/dL (0.55-1.02); EST Glomerular Filtration Rate 88 mL/min (>60); Est Glom Filt Rate - Afr Amer 107 mL/min (>60); Estimated Creatinine Clearance 105.34 ml/min; Globulin 3.3 g/dL (2.2-4.2); Glucose 85 mg/dL (74-106); Lipase 91 U/L (73-393); Potassium 4.2 mmol/L (3.5-5.1); Sodium Level 139 mmol/L (136-145)
[2021-05-20 17:41] VITALS: BP 121/82; PULSE 71; RESP 18; O2SAT 98
[2021-05-20 19:33] VITALS: RESP 16
== END 2021-05-20 19:34 | disposition home or self-care (01) ==
PROVIDERS: Emergency Medicine; Emergency Provider Student in an Organized Health Care Education/Training Program
DX: R10.31 Right lower quadrant pain (principal); K59.00 Constipation, unspecified; Z87.891 Personal history of nicotine dependence; Z87.442 Personal history of urinary calculi
CPT/HCPCS: 74177; 80053; 81001; 81025; 83690; 85025; 96374; 99282; J7030; Q9967; A4216; J2405

== ENCOUNTER → 2021-06-18 07:45 | Outpatient (CLI) | payer MEDICAID, SELFPAY ==
[2021-01-02 08:00] VITALS: BMI 24.8
[2021-06-18] MEDS: Benralizumab 30 MG/ML Syringe SC (08:01)
[2021-06-18 08:04] VITALS: BP 121/68; PULSE 70; RESP 16; TEMP 36.3; O2SAT 99
== END ==
PROVIDERS: Referring Provider Nurse Practitioner Acute Care; Visit Provider Nurse Practitioner Acute Care
DX: J45.50 Severe persistent asthma, uncomplicated (principal)
CPT/HCPCS: 96372; J0517

== ENCOUNTER → 2021-07-09 08:24 | Outpatient (CLI) | payer MEDICAID, SELFPAY | PROVIDERS: Referring Provider Nurse Practitioner Acute Care; Visit Provider Nurse Practitioner Acute Care | DX: R05 Cough (principal) | CPT/HCPCS: 87635; C9803; U0005; U0003 ==

== ENCOUNTER → 2021-08-13 07:51 | Outpatient (CLI) | payer MEDICAID, SELFPAY ==
[2021-08-13 08:00] VITALS: BP 118/66; PULSE 77; RESP 16; TEMP 36.7; O2SAT 96
[2021-08-13] MEDS: Benralizumab 30 MG/ML Syringe SC (08:25)
== END ==
PROVIDERS: Referring Provider Nurse Practitioner Acute Care; Visit Provider Nurse Practitioner Acute Care
DX: J45.50 Severe persistent asthma, uncomplicated (principal)
CPT/HCPCS: 96372; J0517

== ENCOUNTER → 2021-09-30 10:40 | Outpatient (CLI) | payer MEDICAID, SELFPAY | PROVIDERS: Referring Provider Nurse Practitioner Acute Care; Visit Provider Nurse Practitioner Acute Care | DX: R05.9 Cough, unspecified (principal) | CPT/HCPCS: 87070; 87077; 87186; 87205 ==

== ENCOUNTER → 2021-10-08 07:42 | Outpatient (CLI) | payer MEDICAID, SELFPAY ==
[2021-10-08 07:48] VITALS: BP 128/64; PULSE 84; RESP 16; TEMP 36.2; O2SAT 99; BMI 25.8
[2021-10-08] MEDS: Benralizumab 30 MG/ML Syringe SC (07:49)
== END ==
PROVIDERS: Referring Provider Nurse Practitioner Acute Care; Visit Provider Nurse Practitioner Acute Care
DX: J45.50 Severe persistent asthma, uncomplicated (principal)
CPT/HCPCS: 96372; J0517

== ENCOUNTER 2021-11-12 09:10 | Outpatient (CLI) | payer MEDICAID, SELFPAY ==
[2021-11-12 09:45] LABS: Absolute Lymphocyte Count 2.14 X10^3/uL (0.83-4.51); Absolute Neutrophil Count 4.3 X10^3/uL (2.0-7.7); Basophil# 0.02 X10^3/uL; Basophil% 0.3 % (0-1); Hematocrit 43.9 % (37-47); Hemoglobin 14.4 g/dL (12.0-15.0); Lymphocyte # 2.14 X10^3/ul (0.83-4.51); Lymphocyte % 31.1 % (19-41); Mean Corp Hgb Conc 32.8 g/dL (32-36); Mean Corpuscular Hgb 32.4 pg (27.0-32.0); Mean Corpuscular Volume 98.9 fL (81-99); Mean Platelet Vol. 10.5 fl (6.2-12.0); Monocyte# 0.46 X10^3/uL; Monocyte% 6.7 % (0-10); NRBC Flagged by Analyzer 0 % (0-5); Neutrophil # 4.26 X10^3/uL (2.7-7.7); Neutrophil % 61.8 % (47-70); Platelet Count 234 K/mm3 (150-450); RBC Distribution Width SD 47.7 fl (35.1-43.9); Red Blood Count 4.44 M/mm3 (4.2-5.4); White Blood Count 6.9 K/mm3 (4.4-11.0)
[2021-11-12 10:27] LABS: ALB/GLOB Ratio 0.9 RATIO (0.9-2.4); AST(SGOT) 12 U/L (15-37); Alanine Aminotransfer ALT/SGPT 19 U/L (13-56); Albumin, Serum 3.6 g/dL (3.2-5.0); Alkaline Phosphatase 83 U/L (45-117); Anion Gap 7 (5-15); BUN 16 mg/dL (7-18); Calcium,Total 8.8 mg/dL (8.5-10.1); Chloride 106 mmol/L (98-107); Cholesterol 198 mg/dL (200); Creatinine, Serum 0.89 mg/dL (0.55-1.02); EST Glomerular Filtration Rate 74 mL/min (>60); Est Glom Filt Rate - Afr Amer 89 mL/min (>60); Globulin 3.9 g/dL (2.2-4.2); Glucose 104 mg/dL (74-106); High Density Lipoprotein 52 mg/dL; Magnesium 2.3 mg/dL (1.6-2.6); Potassium 3.9 mmol/L (3.5-5.1); Protein, Total 7.5 g/dL (6.4-8.2); Sodium Level 139 mmol/L (136-145); Thyroid Stim Hormone (TSH) 2.08 uIU/mL (0.358-3.74); Triglycerides 192 mg/dL; Very Low Density Lipoprotein 38 mg/dL (5-40)
[2021-11-13 17:51] LABS: Thyroid Peroxidase AB 12 IU/mL (0-34)
[2021-11-16 18:08] LABS: Beef <0.10 kU/L (Class 0); Bermuda Grass 0.26 kU/L (Class 0/I); Bluegrass, Kentucky 1.17 kU/L (Class II); Corn 0.37 kU/L (Class I); D farinae Mite 0.59 kU/L (Class II); D pteronyssinus 0.68 kU/L (Class II); Dog Epithelia 6.87 kU/L (Class IV); Egg, Whole <0.10 kU/L (Class 0); Elm, American White 0.99 kU/L (Class II); Milk (Cow) 0.57 kU/L (Class II); Oak, White 0.28 kU/L (Class 0/I); Peanut 0.71 kU/L (Class II); Plantain, English 0.31 kU/L (Class 0/I); Pork 0.11 kU/L (Class 0/I); Ragweed, Short/Common 0.46 kU/L (Class I); Soybean 0.24 kU/L (Class 0/I); Wheat 0.56 kU/L (Class II)
[2021-11-16 21:48] LABS: Chocolate <0.10 kU/L (Class 0)
== END 2021-11-12 23:59 | disposition short-term general hospital (02) ==
LOC: LAB 09:13
PROVIDERS: Referring Provider Nurse Practitioner Adult Health; Visit Provider Nurse Practitioner Adult Health
DX: G47.62 Sleep related leg cramps (principal); J45.909 Unspecified asthma, uncomplicated
CPT/HCPCS: 36415; 80053; 80061; 83735; 84443; 85025; 86003; 86005; 86376

== ENCOUNTER 2021-12-03 07:48 | Outpatient (CLI) | payer MEDICAID, SELFPAY ==
[2021-12-03 08:05] VITALS: BP 108/62; PULSE 69; RESP 16; TEMP 36.2; O2SAT 99; BMI 28.5
[2021-12-03] MEDS: Benralizumab 30 MG/ML Syringe SC (08:27)
== END 2021-12-03 23:59 | disposition home or self-care (01) ==
LOC: MEDOUTP 07:48
PROVIDERS: Referring Provider Nurse Practitioner Acute Care; Visit Provider Nurse Practitioner Acute Care
DX: J45.50 Severe persistent asthma, uncomplicated (principal)
CPT/HCPCS: 96372; J0517

== ENCOUNTER 2021-12-30 15:38 | Outpatient (CLI) | payer MEDICAID, SELFPAY ==
[2021-12-30 15:46] VITALS: BP 127/67; PULSE 75; RESP 16; TEMP 35.9; O2SAT 99; BMI 27.2
[2021-12-30] MEDS: Benralizumab 30 MG/ML Syringe SC (15:50)
== END 2021-12-30 23:59 | disposition home or self-care (01) ==
LOC: MEDOUTP 15:38
PROVIDERS: Referring Provider Nurse Practitioner Acute Care; Visit Provider Nurse Practitioner Acute Care
DX: J45.50 Severe persistent asthma, uncomplicated (principal)
CPT/HCPCS: 96372; J0517

== ENCOUNTER → 2022-02-25 | Outpatient (CLI) | payer MEDICAID, SELFPAY ==
[2022-02-25 07:52] VITALS: BP 109/66; PULSE 69; RESP 16; TEMP 36.6; O2SAT 100; BMI 27.6
[2022-02-25] MEDS: Benralizumab 30 MG/ML Syringe SC (08:00)
== END | disposition home or self-care (01) ==
LOC: MEDOUTP 07:38
PROVIDERS: Referring Provider Nurse Practitioner Acute Care; Visit Provider Nurse Practitioner Acute Care
DX: J45.50 Severe persistent asthma, uncomplicated (principal)
CPT/HCPCS: 96372; J0517

== ENCOUNTER → 2022-04-23 | Outpatient (CLI) | payer MEDICAID, SELFPAY ==
[2022-04-23 08:00] VITALS: BP 114/65; PULSE 76; RESP 16; TEMP 36.2; O2SAT 97; BMI 26.5
[2022-04-23] MEDS: Benralizumab 30 MG/ML Syringe SC (08:06)
== END | disposition home or self-care (01) ==
LOC: MEDOUTP 07:54
PROVIDERS: Referring Provider Nurse Practitioner Acute Care; Visit Provider Nurse Practitioner Acute Care
DX: J45.50 Severe persistent asthma, uncomplicated (principal)
CPT/HCPCS: 96372; J0517

== ENCOUNTER → 2022-05-21 | Outpatient (CLI) | payer MEDICAID, SELFPAY ==
[2022-05-21] MEDS: Benralizumab 30 MG/ML Syringe SC (08:06)
[2022-05-21 08:12] VITALS: BP 109/71; PULSE 66; TEMP 35.9; O2SAT 98
== END | disposition home or self-care (01) ==
LOC: MEDOUTP 07:59
PROVIDERS: Referring Provider Nurse Practitioner Acute Care; Visit Provider Nurse Practitioner Acute Care
DX: J45.50 Severe persistent asthma, uncomplicated (principal)
CPT/HCPCS: 96372; J0517

== ENCOUNTER → 2022-07-15 | Outpatient (CLI) | payer MEDICAID, SELFPAY ==
[2022-07-15 15:19] VITALS: BP 120/74; PULSE 69; RESP 16; TEMP 36.2; O2SAT 97; BMI 25.7
[2022-07-15] MEDS: Benralizumab 30 MG/ML Syringe SC (15:22)
== END | disposition home or self-care (01) ==
LOC: MEDOUTP 15:05
PROVIDERS: Referring Provider Nurse Practitioner Acute Care; Visit Provider Nurse Practitioner Acute Care
DX: J45.50 Severe persistent asthma, uncomplicated (principal)
CPT/HCPCS: 96372; J0517

== ENCOUNTER → 2022-08-12 | Outpatient (CLI) | payer MEDICAID, SELFPAY ==
[2022-08-12 15:00] VITALS: BP 136/79; PULSE 83; RESP 16; O2SAT 96
[2022-08-12] MEDS: Benralizumab 30 MG/ML Syringe SC (15:03)
== END | disposition home or self-care (01) ==
LOC: MEDOUTP 14:56
PROVIDERS: Referring Provider Nurse Practitioner Acute Care; Visit Provider Nurse Practitioner Acute Care
DX: J45.50 Severe persistent asthma, uncomplicated (principal)
CPT/HCPCS: 96372; J0517

== ENCOUNTER → 2022-09-24 | Outpatient (CLI) | payer MEDICAID, SELFPAY ==
--- NOTE | 2022-09-24 07:13 | BI_ITS ---
MAMMOGRAPHY - BILATERAL SCREENING REASON FOR EXAM: Female, 42 years old. Routine annual screening examination. PERTINENT HISTORY: Sister with breast cancer. Mother with breast cancer. TECHNIQUE: Digital bilateral breast seamus (3D mammographic acquisition) in the CC and MLO projections. 2-D mediolateral oblique (MLO) and craniocaudad (CC) views of both breasts were obtained. CAD: Full Field Digital Mammography with Computer Added Detection was performed. COMPARISON: None. Baseline examination. FINDINGS: Breast Composition: There are scattered areas of fibroglandular density. There are no dominant masses or suspicious calcifications. No other significant abnormalities are identified. BI/SCRN MAMM (CAD)W/SEAMUS BILAT IMPRESSION: Negative screening mammogram. Yearly followup mammogram recommended. (A) ASSESSMENT CATEGORY: BIRADS Category 1: Negative. A letter regarding these results will be sent to the patient by the facility within 30 days. Approximately 10% of breast cancers are not detected by mammography. A normal mammogram should not delay biopsy of a clinically suspicious abnormality. [id number] Electronically Signed: Riki Lawson MD at 9:06 EST ,
== END | disposition home or self-care (01) ==
LOC: OPBI 07:11
PROVIDERS: Visit Provider Nurse Practitioner Women's Health
DX: Z12.31 Encounter for screening mammogram for malignant neoplasm of breast (principal); Z80.3 Family history of malignant neoplasm of breast
CPT/HCPCS: 77063; 77067

== ENCOUNTER → 2022-10-07 | Outpatient (CLI) | payer MEDICAID, SELFPAY ==
[2022-10-07] MEDS: Benralizumab 30 MG/ML Syringe SC (11:18)
[2022-10-07 11:21] VITALS: BP 124/65; PULSE 79; RESP 16; TEMP 35.9; O2SAT 97
== END | disposition home or self-care (01) ==
LOC: MEDOUTP 11:14
PROVIDERS: Referring Provider Nurse Practitioner Acute Care; Visit Provider Nurse Practitioner Acute Care
DX: J45.50 Severe persistent asthma, uncomplicated (principal)
CPT/HCPCS: 96372; J0517

== ENCOUNTER → 2022-12-02 | Outpatient (CLI) | payer MEDICAID, SELFPAY ==
[2022-12-02 14:57] VITALS: BP 126/72; PULSE 75; RESP 16; TEMP 36.6; O2SAT 99
[2022-12-02] MEDS: Benralizumab 30 MG/ML Syringe SC (15:00)
== END | disposition home or self-care (01) ==
LOC: MEDOUTP 14:53
PROVIDERS: Referring Provider Nurse Practitioner Acute Care; Visit Provider Nurse Practitioner Acute Care
DX: J45.50 Severe persistent asthma, uncomplicated (principal)
CPT/HCPCS: 96372; J0517

== ENCOUNTER 2023-03-24 12:00 | Outpatient (CLI) | payer OTHER, MEDICAID, SELFPAY ==
[2023-03-24] MEDS: Benralizumab 30 MG/ML Syringe SC (12:10)
[2023-03-24 12:12] VITALS: BP 122/77; PULSE 79; RESP 16; O2SAT 98; BMI 27.1
== END 2023-03-24 12:01 | disposition home or self-care (01) ==
LOC: MEDOUTP 12:02
PROVIDERS: Referring Provider Nurse Practitioner Acute Care; Visit Provider Nurse Practitioner Acute Care
DX: J45.50 Severe persistent asthma, uncomplicated (principal)
CPT/HCPCS: 96372; J0517

== ENCOUNTER 2023-05-19 12:58 | Outpatient (CLI) | payer OTHER, MEDICAID, SELFPAY ==
[2023-05-19 13:06] VITALS: BP 120/61; PULSE 92; RESP 16; TEMP 36.2; O2SAT 97; BMI 25.7
[2023-05-19] MEDS: Benralizumab 30 MG/ML Syringe SC (13:08)
== END 2023-05-19 12:59 | disposition home or self-care (01) ==
LOC: MEDOUTP 12:58
PROVIDERS: Referring Provider Nurse Practitioner Acute Care; Visit Provider Nurse Practitioner Acute Care
DX: J45.50 Severe persistent asthma, uncomplicated (principal)
CPT/HCPCS: 96372; J0517

== ENCOUNTER 2023-07-14 13:45 | Outpatient (CLI) | payer OTHER, MEDICAID, SELFPAY ==
[2023-07-14 13:58] VITALS: BP 113/60; PULSE 60; RESP 16; TEMP 36; O2SAT 100
[2023-07-14] MEDS: Benralizumab 30 MG/ML Syringe SC (14:04)
== END 2023-07-14 13:46 | disposition home or self-care (01) ==
LOC: MEDOUTP 13:45
PROVIDERS: Referring Provider Nurse Practitioner Acute Care; Visit Provider Nurse Practitioner Acute Care
DX: J45.50 Severe persistent asthma, uncomplicated (principal)
CPT/HCPCS: 96372; J0517